=== PATIENT | female | born 1990 | race Caucasian/White ===

== ENCOUNTER 2019-08-30 10:02 | Emergency (ER) | payer OTHER ==
[~2019-08-30] VITALS: Ht 165.1 cm; Wt 90.7 kg
[2019-08-30 10:55] VITALS: BP 141/99
== END 2019-08-30 11:46 | disposition home or self-care (01) ==
LOC: ER 10:02
DX: J06.9 Acute upper respiratory infection, unspecified (principal); I10 Essential (primary) hypertension